=== PATIENT | male | born 1950 | race Caucasian/White ===

== ENCOUNTER 2022-06-06 09:31 | Day surgery (SDC) | payer MEDICARE, OTHER, SELFPAY ==
[2022-06-06] VITALS (9 sets, daily range): BP systolic 79–142; BP diastolic 51–84; PULSE 52–78; RESP 13–17; TEMP 36.1–36.5; O2SAT 94–98; BMI 23.1
--- NOTE | 2022-06-06 11:12 | PM.HP.1 ---
History of Present Illness History of Present Illness Date Patient Seen: 06/06/22 Time Patient Seen: 11:12 Chief complaint: SCREENING COLONOSCOPY Narrative: Colon cancer screening. Last scope was 12 years ago. No symptoms. Patient History Surgical History History of lithotripsy Family & Social History Family History Father Age: 95 Heart disease Hypertension Grandmother Mental health problem Stroke Mother Cancer Grandfather Melanoma Hypertension Sister Age: 71 Hypertension Stroke Sister Age: 66 Hypertension Social History: household members spouse Tobacco & Substance use: Smoking Status Never smoker alcohol intake current alcohol intake frequency a few times a week Substance Use Type does not use Meds Home Medications and Allergies Home Medications Medication Instructions Recorded Confirmed Type sodium,potassium,mag sulfates 17.5 See Rx Instructions PO .COMPLEX 05/31/22 Rx gram-3.13 gram-1.6 gram oral soln #354 mL (Suprep Bowel Prep Kit) Allergies Allergy/AdvReac Type Severity Reaction Status Date / Time environmental allergies Allergy Mild sneezing,nasal Uncoded 06/06/22 10:22 rhinitis Review of Systems Review of Systems ROS: Yes All systems reviewed with the patient and are negative except as otherwise documented Exam Vital Signs (past 8 hours): - 06/06/22 10:25 Temperature 97.2 F L Pulse Rate 58 L Respiratory Rate 14 Blood Pressure 116/71 Pulse Oximetry 97 Oxygen Delivery Method Room Air Oxygen Delivery Method Room Air Const General: cooperative and healthy appearing Nutritional Appearance: average body habitus HENMA Head: normal to inspection, normocephalic and atraumatic Eyes Sclera: sclerae normal Neck Neck: normal visual inspection and trachea midline Chest Chest: normal inspection of the chest Resp Effort & Inspection: normal respiratory effort and able to speak in complete sentences Cardio Rate: regular rate Rhythm: regular rhythm GI Inspection: normal to inspection Palpation: soft Skin General: atrophy Neuro General: patient alert, patient awake and patient oriented x3 Cognition: normal cognition Psych Appearance: grossly normal Mental Status: mental status grossly normal Affect: normal affect Judgment: judgment good Assessment & Plan Assessment & Plan narrative: colon cancer screening colonoscopy with MAC COVID-19 COVID-19 status: Negative Time Spent With Patient Time with patient: less than 30 minutes Critical Care time: I spent a total of [] minutes of critical care time on this patient's care today; this time is exclusive of procedural time.
[2022-06-06] MEDS: LACTATED RINGERS 1,000 ML 42 ML IV (11:20)
--- NOTE | 2022-06-06 11:49 | PM.OP.COLON ---
Operative Date/Time/Diagnoses Date of procedure: 06/06/22 Time of procedure: 11:49 Pre-op diagnosis: Colon cancer screening Post-op diagnosis: same Procedure & Clinicians Study performed: Colonoscopy with MAC Same procedure as scheduled: Yes Indications: Colon cancer screening Surgeon: Maegan Mckenzie Procedure Notes Procedure in detail: Preop diagnosis: Colon cancer screening Postop diagnosis: Same Operative procedure: Colonoscopy with MAC Surgeon: Rosa M Mckenzie MD Findings: Tortuous colon but no polyps identified, poor bowel prep Procedure: Patient placed in lateral position. Rectal exam performed showing normal tone no masses. Colonoscope inserted into the rectum and advanced to ileocecal valve with minimal difficulty. Insufflation and extraction of the scope and the above findings. Retroflex was included in the rectum. Impression: No polyps identified. Poor bowel prep. Plan: Repeat colonoscopy in 10 years unless otherwise indicated by change in clinical condition Specimen(s): none sent Complications: none Post-procedure Recommendations: Colonoscopy in 10 years Follow up: as needed Disposition: PACU
== END 2022-06-06 13:12 | disposition home or self-care (01) ==
PROVIDERS: Family Provider Family Medicine; PCP Nurse Practitioner Family; Referring Provider Surgery; Visit Provider Surgery
PROC: 0DJD8ZZ Inspection of Lower Intestinal Tract, Via Natural or Artificial Opening Endoscopic (ICD-10-PCS; CPT 45378; principal; 2022-06-06 11:30)
DX: Z12.11 Encounter for screening for malignant neoplasm of colon (principal)
CPT/HCPCS: G0121